=== PATIENT | female | born 1990 | race Caucasian/White ===

== ENCOUNTER 2017-12-06 05:09 | Day surgery (SDC) | payer OTHER ==
[2017-12-03 16:36] VITALS: BMI 26.2
--- NOTE | 2017-12-06 06:54 | HP ---
History & Physical Update - History History: No Change - Physical Physical: No Change - Assessment Assessment: No Change - Plan Plan: No Change (No change in HP)
[2017-12-06] MEDS ORDERED: LACTATED RINGERS SOLUTION 1,000 ML IV SCH ×2 (07:00→08:00)
[2017-12-06] MEDS ORDERED: MIDAZOLAM HCL 2 MG/2 ML SINGLE DOSE VIAL ONE (07:21)
[2017-12-06] MEDS ORDERED: DEXAMETHASONE SOD PHOSPHATE 4 MG/1 ML VIAL ONE (07:28)
[2017-12-06] MEDS ORDERED: KETOROLAC TROMETHAMINE 30 MG/1 ML VIAL ONE (07:28)
[2017-12-06] MEDS ORDERED: LIDOCAINE HCL/PF 2% SDV 5ML VIAL ONE (07:28)
[2017-12-06] MEDS ORDERED: SUCCINYLCHOLINE CHLORIDE 200 MG/10 ML VIAL ONE (07:28)
[2017-12-06] MEDS ORDERED: ROCURONIUM BROMIDE 50 MG/5 ML VIAL ONE (07:28)
[2017-12-06] MEDS ORDERED: ONDANSETRON 4 MG/2 ML VIAL IVPUSH PRN (07:57)
[2017-12-06] MEDS ORDERED: BUPIVACAINE HCL/PF 0.5% (5MG/ML) 10 ML VIAL ONE (08:05)
[2017-12-06] MEDS ORDERED: PROPOFOL 20 ML ONE ×2 (08:18→08:49)
[2017-12-06] MEDS ORDERED: DESFLURANE GAS 240 ML BOTTLE IH ONE (08:41)
[2017-12-06] MEDS ORDERED: SODIUM CHLORIDE 0.9% P/F 10 ML VIAL IJ ONE (08:54)
[2017-12-06] MEDS ORDERED: ceFAZolin SODIUM 1 GM VIAL IVPB ONE (08:57)
[2017-12-06] MEDS ORDERED: NEOSTIGMINE METHYLSULFATE 0.5 MG/ML - 10 ML MDV ONE (09:08)
[2017-12-06] MEDS ORDERED: GLYCOPYRROLATE 0.2 MG/1 ML VIAL ONE (09:08)
[2017-12-06] MEDS ORDERED: BUPIVACAINE HCL/PF 0.5% (5MG/ML) 10 ML VIAL IJ ONE (09:30)
--- NOTE | 2017-12-06 09:56 | OP ---
Operative Note - Note: Operative Date: 12/06/17 Pre-Operative Diagnosis: right paraovarian cyst Operation: laparsopcy with right paraovarian cystectomy, lysis of adhesion Surgeon: Iris Woo Laster Hand: Mary Lu Anesthesiologist/DIRECTOR HUMAN SERVICES: Levi Vazquez Anesthesia: General Estimated Blood Loss (mls): 20 Drains, Volume Out (mls): 500 (valdez) Fluid Volume Replaced (mls): 1,000 Operative Report Dictated: Yes
--- NOTE | 2017-12-06 09:58 | SURG ---
Surgery Sql Database Developer Note Sql Database Developer: Mary Lu PA-C Date of Service: 12/06/17 Diagnosis: right paraovarian cyst Procedure: laparoscopic right paraovarian cystectomy, lysis of adhesion I was present for the entirety of the operative procedure. For further detail, please refer to operative report. Visit type - Case Type Case Type: Scheduled - Emergency Emergency Visit: No - New patient This patient is new to me today: Yes Date on this admission: 12/06/17
--- NOTE | 2017-12-06 10:11 | OP ---
DATE OF OPERATION: 12/06/2017 PREOPERATIVE DIAGNOSES: Right paraovarian cyst, pelvic pain. OPERATION: Laparoscopic paraovarian cystectomy and lysis of adhesions. POSTOPERATIVE DIAGNOSES: Right paraovarian cyst, pelvic pain and cul-de-sac adhesion. SURGEON: Iris Woo MD LEATHER PATCHER: ANIRUDH Penny ANESTHESIA: General. ANESTHESIOLOGIST: . FINDINGS: A 9-cm paraovarian cyst was noted on the right side off the right ovary. PROCEDURE: Patient was taken to the operating room, placed in the dorsal lithotomy position, prepped and draped in the usual sterile fashion. Timeout was performed in accordance with hospital regulation. Espinoza catheter was inserted into the bladder. Attention was then drawn to the umbilicus where a 5-mm umbilical incision was made. Veress needle was inserted into the cavity. Approximately 3 to 4 L of CO2 was insufflated in the cavity. Veress needle was then removed and a 5-mm trocar was then inserted. Laparoscope and camera attached. Visualization revealed a right paraovarian 9-cm cyst. Tubes were noted to be normal and ovaries were noted to be normal. Also some cul-de-sac adhesions were noted. Two trocars were placed on the left and right side after scalpel had been used to make 5-mm incisions on the left and right lower abdomen. Trocars had been inserted under direct visualization. Endoshears was attached with a grasper. The paraovarian cyst was then grasped. Endoshears was then used to enter the cyst and cyst was then bluntly and sharply dissected out of its cavity. Endoshears and LigaSure were then used to cut off the cyst wall and submit to Pathology after removal. Hemostasis was achieved. Some cul-de-sac adhesions were noted and the Endoshears and LigaSure were then used to lyse the dense adhesions noted in the cul-de-sac region. Hemostasis was achieved. All instruments were then removed. CO2 was removed from the abdomen. Incisions were then closed using 4-0 Biosyn suture in a subcuticular fashion. Wounds were washed and dressed. Patient had tolerated procedure well and Espinoza catheter was removed after the case. Pack count was noted to be normal. EBL 20 mL. IRIS WOO M.D. FIDENCIO/[id number]
[2017-12-06] MEDS ORDERED: MIDAZOLAM HCL 2 MG/2 ML SINGLE DOSE VIAL IVPUSH ONE ×3 (10:18→10:28)
[2017-12-06] MEDS ORDERED: ALBUTEROL SO4 0.083% IH SOL 2.5 MG/3 ML VIAL.NEB. NEB PRN (10:19)
[2017-12-06] MEDS ORDERED: oxyCODONE HCL 5 MG TABLET ONE (12:59)
[2017-12-06] MEDS ORDERED: oxyCODONE HCL 5 MG TABLET PO PRN (13:01)
[2017-12-06 13:40] VITALS: TEMP 97.5
[2017-12-06 15:58] VITALS: BP 100/66; PULSE 72
--- NOTE | 2017-12-07 12:30 | PATH ---
Surgical Pathology Report Patient Name: FANTA CUNHA [facility]. Rec. #: [id number] /Age/Gender: 1990 (Age: 27) / F Account: [id number] Location: [facility] SUR[facility] Taken: 12/06/2017 Received: 12/06/2017 Reported: 12/07/2017 Physicians: Iris Woo M.D. Specimen(s) Received RIGHT PARAOVARIAN CYST Clinical History Paraovarian cyst Final Diagnosis PARAOVARIAN, CYST, RIGHT, CYSTECTOMY: SEROUS CYSTADENOMA. Electronically Signed Heather Rodriguez M.D. Gross Description Received in formalin labeled "right paraovarian cyst," is a 6.5 x 3.3 x 1.2 cm rossi-pink, focally disrupted cyst. The outer surface is rossi-pink and smooth. The inner lining is smooth. No excrescences are identified. Clinical Safety Specialist sections are submitted in 3 cassettes. saudi/12/06/2017
== END 2017-12-06 14:00 | disposition home or self-care (01) ==
LOC: JASU-SURG 05:09
PROVIDERS: ATTEND Obstetrics & Gynecology
PROC: 0UB04ZZ Excision of Right Ovary, Percutaneous Endoscopic Approach (ICD-10-PCS; principal; 2017-12-06 08:00)
DX: N83.291 Other ovarian cyst, right side (principal)
CPT/HCPCS: 86850; 86900; 86901; 88305-TC; 94760

== ENCOUNTER 2018-01-06 10:10 | Emergency (ER) | payer OTHER ==
[2018-01-06 10:19] VITALS: TEMP 98.6; BMI 25.0
--- NOTE | 2018-01-06 11:03 | PDOC ---
Attending Attestation - HPI HPI: 01/06/18 11:57 The patient is a 27 year old female, with a significant PMH of ovarian cystectomy, who presents to the emergency department with abdomen pain that began approximately 4 days ago. The patient describes the pain as sharp, non radiating and intermittent located to RUQ. The patient notes pain is exacerbated with deep inspiration. The patient denies chest pain, shortness of breath, headache and dizziness.Denies fever, chills, nausea, vomit, diarrhea and constipation.Denies dysuria, frequency, urgency and hematuria. Allergies: NKDA Past surgical history: Ovarian Cystectomy Social history: None reported PCP: Manuela Manning Documentation prepared by Marycruz Palacio, acting as medical program specialist for Debra Fung MD. - Physicial Exam PE: 01/06/18 11:57 GENERAL: Awake, alert, and fully oriented, in no acute distress HEAD: No signs of trauma EYES: PERRLA, EOMI, sclera anicteric, conjunctiva clear ENT: Auricles normal inspection, hearing grossly normal, nares patent, oropharynx clear without exudates. Moist mucosa NECK: Normal ROM, supple, no lymphadenopathy, JVD, or masses LUNGS: Breath sounds equal, clear to auscultation bilaterally. No wheezes, and no crackles HEART: Regular rate and rhythm, normal S1 and S2, no murmurs, rubs or gallops ABDOMEN: +RUQ tenderness to palpation. No guarding, no rebound. No masses NEUROLOGICAL: Cranial nerves II through XII grossly intact. Normal speech. SKIN: Warm, Dry, normal turgor, no rashes or lesions noted. <Marycruz Palacio - Last Filed: 01/06/18 11:59> - Medical Decision Making 01/08/18 11:16 Pt presents to the ED complaining of RUQ pain for 4 days. Denies fever, nausea or vomiting. Abdomen is tender in the RUQ on my exam. US checked to evaluate for cholecystitis or cholelithiasis and is negative. Pt feels improved. Will discharge home. <Debra Fung - Last Filed: 01/08/18 11:17>
[2018-01-06] MEDS ORDERED: ACETAMINOPHEN 325 MG TABLET (FP) PO ONE (11:39)
--- NOTE | 2018-01-06 11:46 | PDOC ---
History of Present Illness - General Chief Complaint: Pain Stated Complaint: UPPER RT ABD PAIN Time Seen by Provider: 01/06/18 11:02 - History of Present Illness Initial Comments: The patient is a 27 F w/ a hx of recent lap ovarian cystectomy who presents with 4d of worsening, intermittent, sharp, non-radiating, RUQ pain. Pain from surgery initially resolved completely. Denies having had this type of pain before. Denies associated fevers/chills, chest pain, N/V/C/D, dysuria, hematuria, or blood in her stool. She endorses pleuritic pain on the right side with deep inspiration. Immediately after her surgery the patient reported bloating abdominal pain and pressure that resolved over the next 3-5d. She was feeling well prior to the onset of the pain the presents for today. She also states that the pain is a different quality than that of her previous abdominal pain. 01/06/18 11:40 Past History - Past Medical History Allergies/Adverse Reactions: Allergies Allergy/AdvReac Type Severity Reaction Status Date / Time No Known Allergies Allergy Verified 01/06/18 10:19 Home Medications: Ambulatory Orders Cholecalciferol (Vitamin D3) [Vitamin D3 -] 1,000 unit PO DAILY 12/03/17 Ferrous Sulfate [Feosol] 325 mg PO DAILY 12/03/17 Multivitamin [Multiple Vitamins] 1 each PO DAILY 12/03/17 Activated Charcoal [Charcoal] 0 mg PO DAILY 01/06/18 Anemia: Yes (H/O) Diabetes: No GI Disorders: No Thyroid Disease: No - Suicide/Smoking/Psychosocial Hx Smoking History: Never smoked Have you smoked in the past 12 months: No Information on smoking cessation initiated: No Hx Alcohol Use: No Drug/Substance Use Hx: No Substance Use Type: Alcohol Review of Systems - Review of Systems Able to Perform ROS?: Yes Comments:: GENERAL/CONSTITUTIONAL: No fever or chills. No weakness HEAD, EYES, EARS, NOSE AND THROAT: No change in vision. No ear pain or discharge. No sore throat CARDIOVASCULAR: No chest pain or shortness of breath RESPIRATORY: No cough, wheezing, or hemoptysis GASTROINTESTINAL: No nausea, vomiting, diarrhea or constipation GENITOURINARY: No dysuria, frequency, or change in urination MUSCULOSKELETAL: No joint or muscle swelling or pain. No neck or back pain SKIN: No rash NEUROLOGIC: No headache, vertigo, loss of consciousness, or change in strength/ sensation ENDOCRINE: No increased thirst. No abnormal weight change HEMATOLOGIC/LYMPHATIC: No anemia, easy bleeding, or history of blood clots ALLERGIC/IMMUNOLOGIC: No hives or skin allergy 01/06/18 13:23 Is the patient limited Occitan proficient: No *Physical Exam - Vital Signs Last Vital Signs Temp Pulse Resp BP Pulse Ox 98.6 F 72 16 130/84 100 01/06/18 10:16 01/06/18 10:16 01/06/18 10:16 01/06/18 10:16 01/06/18 10:16 - Physical Exam Comments: GENERAL: Awake, alert, and fully oriented, in no acute distress HEAD: No signs of trauma, normocephalic, atraumatic EYES: PERRL, EOMI, sclera anicteric, conjunctiva clear ENT: Hearing grossly normal, nares patent, oropharynx clear without exudates. Moist mucosa NECK: Normal ROM, supple LUNGS: No distress, speaks full sentences, clear to auscultation bilaterally HEART: Regular rate and rhythm, normal S1 and S2, no murmurs appreciated, peripheral pulses normal and equal bilaterally ABDOMEN: Soft, RUQ TTP, +Dawson's, no rebound or guarding, non-distended, normoactive bowel sounds EXTREMITIES : Normal inspection, Normal range of motion, no edema. No clubbing or cyanosis NEUROLOGICAL: Cranial nerves II through XII grossly intact. Normal speech, normal gait, no focal sensorimotor deficits SKIN: Warm, Dry, normal turgor, no rashes or lesions noted 01/06/18 11:43 ED Treatment Course - LABORATORY CBC & Chemistry Diagram: 01/06/18 11:30 01/06/18 11:30 - RADIOLOGY Radiology Studies Ordered: Category Date Time Status CHEST PA & LAT [RAD] Stat Radiology 01/06/18 11:09 Ordered ABDOMEN US -LIMITED [US] Stat Ultrasound 01/06/18 11:31 Ordered Medical Decision Making - Medical Decision Making The patient is a 27F w/ a history of RAL R ovarian cystectomy who presents with 4d of worsening, intermittent, RUQ abdominal pain. CMP, CBC, Lipase, UA, Upreg CXR, RUQ US Tylenol 975mg PO once for pain 01/06/18 11:44 Lytes wnl No leukocytosis or anemia No significant transaminitis Bili wnl US significant for small gallbladder polyp. UA with 1+LE, pt not symptomatic, UTI not likely Dispo: Home w/ PCP f/u 01/06/18 13:15 *DC/Admit/Observation/Transfer Diagnosis at time of Disposition: RUQ abdominal pain - Discharge Dispostion Disposition: HOME Condition at time of disposition: Stable Decision to Admit order: No - Referrals Referrals: Manuela Manning [Primary Care Provider] - - Patient Instructions Printed Discharge Instructions: DI for Abdominal Pain-Adult Additional Instructions: You were seen today in the Emergency Department for abdominal pain. You were evaluated and found to have a small polyp in your gallbladder; however, no gallstones were observed and no evidence of gallbladder inflammation. Please review the handouts provided at discharge. Follow up with your primary care provider in 1-3 days. Return to the Emergency Department if you develop fevers, worsening symptoms, nausea/vomiting, or any new concerning symptoms. For pain control you can take Tylenol and Ibuprofen as directed. - Post Discharge Activity Forms/Work/School Notes: Back to Work
[2018-01-06 11:49] LABS: HEMATOCRIT 38.1 % (32.4-45.2); HEMOGLOBIN 12.9 GM/dL (10.7-15.3); MCH 30.2 pg (25.7-33.7); MCHC 33.8 g/dl (32.0-36.0); MEAN CELL VOLUME 89.3 fl (80-96); MEAN PLT VOLUME 9.1 fl (7.5-11.1); PLATELET COUNT 257 K/MM3 (134-434); RBC 4.27 M/mm3 (3.60-5.2); RDW 13.6 % (11.6-15.6); WHITE BLOOD COUNT 7.7 K/mm3 (4.0-10.0)
[2018-01-06] MEDS ORDERED: ACETAMINOPHEN 325 MG TABLET (FP) ONE (11:51)
[2018-01-06 11:52] LABS: URINE APPEARANCE SLCLOUDY; URINE BILIRUBIN NEGATIVE (<2.0 mg/dL); URINE COLOR LTYELLOW; URINE GLUCOSE (UA) NEGATIVE (NEGATIVE); URINE KETONE TRACE (NEGATIVE); URINE NITRITE NEGATIVE (NEGATIVE); URINE PROTEIN NEGATIVE (NEGATIVE); URINE UROBILINOGEN NEGATIVE mg/dL (0.2-1.0)
[2018-01-06 12:05] LABS: URINE LEUK ESTERASE 1+ (NEGATIVE)
[2018-01-06 12:07] LABS: EPI CELLS RARE /HPF (FEW); URINE MUCUS RARE
[2018-01-06 12:14] LABS: ALBUMIN 3.9 g/dl (3.4-5.0); ANION GAP 7 MMOL/L (8-16); BILIRUBIN,TOTAL 0.3 mg/dL (0.2-1.0); BLOOD UREA NITROGEN 16 mg/dL (7-18); CALCIUM 8.6 mg/dL (8.5-10.1); CHLORIDE 105 mmol/L (98-107); CO2 26 mmol/L (21-32); CREATININE 0.6 mg/dL (0.55-1.02); GLUCOSE,RANDOM 83 mg/dL (74-106); LIPASE 68 U/L (73-393); POTASSIUM 4.2 mmol/L (3.5-5.1); SGOT/AST 13 U/L (15-37); SGPT/ALT 17 U/L (12-78); SODIUM 138 mmol/L (136-145); TOT PROT 7.6 g/dl (6.4-8.2)
[2018-01-06 12:15] LABS: ALK PHOS 56 U/L (45-117)
[2018-01-06 14:14] VITALS: BP 123/68; PULSE 60
== END 2018-01-06 13:45 | disposition home or self-care (01) ==
LOC: JER 10:10
DX: R10.11 Right upper quadrant pain (principal); Z98.890 Other specified postprocedural states
CPT/HCPCS: 36415; 71046-TC-FY; 76705-TC; 80053; 81003; 81015; 83690; 84703; 85027; 99282-25

== ENCOUNTER 2023-10-23 03:50 | Day surgery (SDC) | payer BC ==
[2023-10-16 18:19] VITALS: BMI 27.7
[2023-10-23] MEDS ORDERED: FENTANYL CITRATE/PF 50 MCG/ML VIAL ONE ×4 (07:26→09:14)
[2023-10-23] MEDS ORDERED: PROPOFOL 20 ML ONE (07:26)
[2023-10-23] MEDS ORDERED: MIDAZOLAM HCL 2 MG/2 ML SINGLE DOSE VIAL ONE (07:27)
[2023-10-23] MEDS ORDERED: oxyCODONE HCL 5 MG TABLET PO PRN ×2 (07:54→08:54)
[2023-10-23] MEDS ORDERED: ONDANSETRON 4 MG/2 ML VIAL IVPUSH PRN ×2 (07:54→08:54)
[2023-10-23] MEDS ORDERED: IBUPROFEN 800 MG/8 ML IJ IVPB PRN (07:54)
[2023-10-23] MEDS ORDERED: IBUPROFEN 600 MG TABLET (FP) PO PRN (07:54)
[2023-10-23] MEDS ORDERED: DEXAMETHASONE SOD PHOSPHATE 4 MG/1 ML VIAL ONE (07:56)
[2023-10-23] MEDS ORDERED: ELECTROLYTE-148 SOLN 1,000 ML IV SCH (08:00)
[2023-10-23] MEDS ORDERED: KETOROLAC TROMETHAMINE 30 MG/1 ML VIAL ONE (08:07)
[2023-10-23] MEDS ORDERED: LACTATED RINGERS SOLUTION 1,000 ML IV SCH (09:00)
[2023-10-23 09:14] VITALS: RESP 18
[2023-10-23 12:08] VITALS: BP 104/62; PULSE 68; TEMP 97.5
== END 2023-10-23 15:30 | disposition home or self-care (01) ==
LOC: JASU-SURG 03:50
PROVIDERS: ATTEND Obstetrics & Gynecology
PROC: 0UB98ZZ Excision of Uterus, Via Natural or Artificial Opening Endoscopic (ICD-10-PCS; principal; 2023-10-23 07:30)
DX: D25.9 Leiomyoma of uterus, unspecified (principal); N84.0 Polyp of corpus uteri
CPT/HCPCS: 81025; 88305-TC; 94760